=== PATIENT | female | born 1995 | race Caucasian/White ===

== ENCOUNTER 2018-07-08 12:16 | Emergency (ER) | payer OTHER ==
[2018-07-08 13:26] LABS: Urine Blood NEGATIVE (NEG); Urine Glucose NEGATIVE (NEG); Urine Protein NEGATIVE (NEG); Urine Specific Gravity 1.025 (1.005-1.030)
--- NOTE | 2018-07-08 13:40 | ER ---
Nurse's Notes [facility] Name: Emily Gomez Age: 23 yrs Sex: Female : 1995 Arrival Date: 07/08/2018 Time: 12:19 Bed 24 Private MD: Diagnosis: Torticollis;Muscle spasm Presentation: 07/08 12:20 Presenting complaint: Patient states: right neck and shoulder pain x3 days, Denies sv injury. Transition of care: patient was not received from another setting of care. Onset of symptoms was July 05, 2018. Care prior to arrival: None. 12:20 Method Of Arrival: Ambulatory sv 12:20 Acuity: DONNY 3 sv 14:02 Risk Assessment: Do you want to hurt yourself or someone else? Patient reports no tl3 desire to harm self or others. Initial Sepsis Screen: Does the patient meet any 2 criteria? No. Patient's initial sepsis screen is negative. Does the patient have a suspected source of infection? No. Patient's initial sepsis screen is negative. 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 - Social history:: Smoking status: Patient uses tobacco products, denies chronic smoking, but will smoke occasionally. - Ebola Screening: : No symptoms or risks identified at this time. - Family history:: not pertinent. - Hospitalizations: : No recent hospitalization is reported. Screenin:22 Abuse screen: Denies threats or abuse. Nutritional screening: No deficits noted. tl3 Tuberculosis screening: No symptoms or risk factors identified. Fall Risk None identified. Assessment: 13:22 General: Appears uncomfortable, well groomed, well developed, well nourished, Behavior tl3 is calm, cooperative, appropriate for age. Pain: Complains of pain in right side of neck and shoulder Pain currently is 5 out of 10 on a pain scale. at worst was 9 out of 10 on a pain scale. Neuro: Level of Consciousness is awake, alert, obeys commands, Oriented to person, place, time, situation, Appropriate for age. Cardiovascular: Patient's skin is warm and dry. Respiratory: Airway is patent Respiratory effort is even, unlabored, Respiratory pattern is regular, symmetrical. GI: No signs and/or symptoms were reported involving the gastrointestinal system. : No signs and/or symptoms were reported regarding the genitourinary system. EENT: No signs and/or symptoms were reported regarding the EENT system. Derm: No signs and/or symptoms reported regarding the dermatologic system. Musculoskeletal: Reports pain in right side of neck down into shoulder pt woke up three days ago with pain, thinks she slept funny. Vital Signs: 12:21 BP 157 / 102; Pulse 106; Resp 20; Pulse Ox 100% ; Weight 140.61 kg; Height 5 ft. 5 in. sv (165.10 cm); Pain 8/10; 14:00 BP 138 / 84; Pulse 85; Resp 18; Pulse Ox 100% on R/A; tl3 12:21 Body Mass Index 51.59 (140.61 kg, 165.10 cm) sv ED Course: 12:19 Patient arrived in ED. mr 12:21 Triage completed. sv 12:22 Arm band placed on Patient placed in an exam room. sv 13:09 Olivia Andrews, GAEL is Primary Nurse. tl3 13:22 Patient has correct armband on for positive identification. Bed in low position. Call tl3 light in reach. 13:22 No provider procedures requiring assistance completed. Patient did not have IV access tl3 during this emergency room visit. 13:28 Checo Pardo MD is Attending Physician. rn Administered Medications: No medications were administered Outcome: 13:39 Discharge ordered by . rn 14:00 Discharged to home ambulatory. tl3 14:00 Condition: stable 14:00 Discharge instructions given to patient, Instructed on discharge instructions, follow up and referral plans. medication usage, Demonstrated understanding of instructions, follow-up care, medications, Prescriptions given X 2. 14:03 Patient left the ED. tl3 Signatures: Jazzy Tijerina RN RN sv Leigh Hall Checo Pardo MD MD rn Lowrey, Tammy, RN RN tl3 Corrections: (The following items were deleted from the chart) 12:22 12:20 Acuity: DONNY 4 [facility]
--- NOTE | 2018-07-08 13:41 | EDPHYS ---
Physician Documentation [facility] Name: Emily Gomez Age: 23 yrs Sex: Female : 1995 Arrival Date: 07/08/2018 Time: 12:19 Bed 24 Private MD: ED Physician Checo Pardo HPI: 07/08 13:35 This 23 yrs old Female presents to ER via Ambulatory with complaints of Neck rn Problem, Shoulder Pain. 13:35 The patient or guardian complains of pain. The symptoms are located. rn 13:35 Onset: The symptoms/episode began/occurred 3 day(s) ago. Associated signs and symptoms: rn Pertinent positives: This patient does not have any pertinent positive signs or symptoms associated with neck pain. Pertinent negatives: fever, headache, bladder incontinence, bowel incontinence, nausea, numbness, tingling, vomiting, weakness. The pain does not radiate. Modifying factors: The symptoms are alleviated by nothing. the symptoms are aggravated by movement, pressure. Severity of symptoms: At their worst the symptoms were moderate, in the emergency department the symptoms have improved. The patient has not experienced similar symptoms in the past. The patient has not recently seen a physician. REports neck pain and spasm, woke up with symptoms 3 days ago, no fever, no trauma, no focal neurological complaints. No chest pain/sob.. 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 - Social history:: Smoking status: Patient uses tobacco products, denies chronic smoking, but will smoke occasionally. - Ebola Screening: : No symptoms or risks identified at this time. - Family history:: not pertinent. - Hospitalizations: : No recent hospitalization is reported. ROS: 13:35 Constitutional: Negative for fever, chills, and weight loss, Eyes: Negative for injury, rn pain, redness, and discharge, Neck: + pain, no swelling/injury Abdomen/GI: Negative for abdominal pain, nausea, vomiting, diarrhea, and constipation, Back: Negative for injury and pain, MS/Extremity: Negative for injury and deformity, Skin: Negative for injury, rash, and discoloration, Neuro: Negative for headache, weakness, numbness, tingling, and seizure. Exam: 13:35 Constitutional: This is a well developed, well nourished patient who is awake, alert, rn and in no acute distress. Head/Face: Normocephalic, atraumatic. Eyes: Pupils equal round and reactive to light, extra-ocular motions intact. Lids and lashes normal. Conjunctiva and sclera are non-icteric and not injected. Cornea within normal limits. Periorbital areas with no swelling, redness, or edema. Neck: Trachea midline, no thyromegaly or masses palpated, and no cervical lymphadenopathy. Supple, full range of motion without nuchal rigidity, or vertebral point tenderness. No Meningismus. Skin: Warm, dry with normal turgor. Normal color with no rashes, no lesions, and no evidence of cellulitis. MS/ Extremity: Pulses equal, no cyanosis. Neurovascular intact. Full, normal range of motion. Equal circumference. Neuro: Awake and alert, GCS 15, oriented to person, place, time, and situation. Cranial nerves II-XII grossly intact. Motor strength 5/5 in all extremities. Sensory grossly intact. Cerebellar exam normal. Normal gait. Vital Signs: 12:21 BP 157 / 102; Pulse 106; Resp 20; Pulse Ox 100% ; Weight 140.61 kg; Height 5 ft. 5 in. sv (165.10 cm); Pain 8/10; 14:00 BP 138 / 84; Pulse 85; Resp 18; Pulse Ox 100% on R/A; tl3 12:21 Body Mass Index 51.59 (140.61 kg, 165.10 cm) sv MDM: 13:28 Patient medically screened. rn 13:35 Differential diagnosis: Cervical Raiculopathy cervical strain, torticollis. Data rn reviewed: vital signs, nurses notes, and as a result, I will discharge patient. Counseling: I had a detailed discussion with the patient and/or guardian regarding: the historical points, exam findings, and any diagnostic results supporting the discharge/admit diagnosis, the need for outpatient follow up, to return to the emergency department if symptoms worsen or persist or if there are any questions or concerns that arise at home. Special discussion: I discussed with the patient/guardian in detail that at this point there is no indication for admission to the hospital. It is understood, however, that if the symptoms persist or worsen the patient needs to return immediately for re-evaluation. 07/08 13:22 Order name: Urine Dipstick--Ancillary (enter results) eb 07/08 13:22 Order name: Urine --Ancillary (enter results) eb Administered Medications: No medications were administered Disposition: 07/08/18 13:39 Discharged to Home. Impression: Torticollis, Muscle spasm. - Condition is Stable. - Discharge Instructions: Acute Torticollis, Adult, Neck Exercises. - Prescriptions for Cyclobenzaprine 10 mg Oral Tablet - take 1 tablet by ORAL route every 8 hours As needed; 20 tablet. Medrol (Rubio) 4 mg Oral Tablets, Dose Pack - take 1 tablet by ORAL route as directed - follow package instructions; 1 packet. - Medication Reconciliation Form, Thank You Letter, Antibiotic Education, Prescription Opioid Use form. - Follow up: Private Physician; When: As needed; Reason: Recheck today's complaints, Re-evaluation by your physician. - Problem is new. - Symptoms have improved. Signatures: Dispatcher [employer] Jazzy Olivas RN RN sv Nieto, Roman, MD MD rn Lowrey, Tammy, RN RN tl3 Corrections: (The following items were deleted from the chart) 14:03 13:39 07/08/2018 13:39 Discharged to Home. Impression: Torticollis; Muscle spasm. tl3 Condition is Stable. Forms are Medication Reconciliation Form, Thank You Letter, Antibiotic Education, Prescription Opioid Use. Follow up: Private Physician; When: As needed; Reason: Recheck today's complaints, Re-evaluation by your physician. Problem is new. Symptoms have improved. rn
[2018-07-08 14:14] VITALS: O2SAT 100
[2018-07-08 14:25] VITALS: BP 138/84
== END 2018-07-08 14:03 | disposition home or self-care (01) ==
LOC: ER 12:16
DX: M43.6 Torticollis (principal); M62.838 Other muscle spasm; Z72.0 Tobacco use; Z91.013 Allergy to seafood
CPT/HCPCS: 81003; 81025